=== PATIENT | female | born 2000 | race Caucasian/White ===

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

== ENCOUNTER 2018-11-26 01:24 | Emergency (ER) | payer MEDICAID ==
--- NOTE | 2018-11-26 01:56 | ER Document Report ---
ED General <EMILIANA ENG - Last Filed: 11/26/18 12:13> <LETTY SHETH - Last Filed: 11/26/18 12:36> - General TRAVEL OUTSIDE OF THE [place] IN LAST 30 DAYS: No - HPI Patient complains to provider of: suicidal ideation <INGA ACHARYA - Last Filed: 11/26/18 17:48> - General Chief Complaint: Psych Problem Stated Complaint: PSYCH EVAL Time Seen by Provider: 11/26/18 01:40 Primary Care Provider: Keisha Fuentes [Outside] - 11/26/18 [facility] [Outside] - Follow up as needed - HPI Notes: Normally healthy 18-year-old female presents with increasing depression due to stressors at home including difficulty college and recent break-up 2 years. Has had suicidal ideation. Patient does not have a plan. Denies all physical complaints (INGA ACHARYA) - Related Data Allergies/Adverse Reactions: Penicillins Allergy (Verified 11/26/18 01:25) Past Medical History - Social History Smoking Status: Unknown if Ever Smoked Family History: Reviewed & Not Pertinent Renal/ Medical History: Denies: Hx Peritoneal Dialysis GI Medical History: Reports: Hx Gastroesophageal Reflux Disease Psychiatric Medical History: Reports: Hx Attention Deficit Hyperactivity Disorder, Hx Depression Past Surgical History: Reports: Hx Appendectomy - Immunizations Immunizations up to date: Yes Hx Diphtheria, Pertussis, Tetanus Vaccination: Yes <INGA ACHARYA - Last Filed: 11/26/18 17:48> Review of Systems <INGA ACHARYA - Last Filed: 11/26/18 17:48> - Review of Systems Notes: REVIEW OF SYSTEMS: CONSTITUTIONAL: -fevers, -chills EENT: -eye pain, -difficulty swallowing, -nasal congestion CARDIOVASCULAR: -chest pain, -syncope. RESPIRATORY: -cough, -SOB GASTROINTESTINAL: -abdominal pain, -nausea, -vomiting, -diarrhea GENITOURINARY: -dysuria, -hematuria MUSCULOSKELETAL: -back pain, -neck pain SKIN: -rash or skin lesions. HEMATOLOGIC: -easy bruising or bleeding. LYMPHATIC: -swollen, enlarged glands. NEUROLOGICAL: -altered mental status or loss of consciousness, -headache, - neurologic symptoms PSYCHIATRIC: -anxiety, + depression. ALL OTHER SYSTEMS REVIEWED AND NEGATIVE. (INGA ACHARYA) Physical Exam <KAL ACHARYAKERRI Bonilla - Last Filed: 11/26/18 17:48> - Vital signs Vitals: Pulse BP Pulse Ox 137 H 128/94 H 100 11/26/18 01:40 11/26/18 01:40 11/26/18 01:40 - Notes Notes: PHYSICAL EXAMINATION: GENERAL: Well-appearing, well-nourished and in no acute distress. HEAD: Atraumatic, normocephalic. EYES: Pupils equal round and reactive to light, extraocular movements intact, sclera anicteric, conjunctiva are normal. ENT: nares patent, oropharynx clear without exudates. Moist mucous membranes. NECK: Normal range of motion, supple without lymphadenopathy LUNGS: Breath sounds clear to auscultation bilaterally and equal. No wheezes rales or rhonchi. HEART: Regular rate and rhythm without murmurs ABDOMEN: Soft, nontender, normoactive bowel sounds. No guarding, no rebound. No masses appreciated. EXTREMITIES: Normal range of motion, no pitting or edema. No cyanosis. NEUROLOGICAL: Cranial nerves grossly intact. Normal speech, normal gait. Normal sensory and motor exams. PSYCH: depressed mood SKIN: Warm, Dry, normal turgor, no rashes or lesions noted. (INGA ACHARYA) Course - Laboratory Result Diagrams: 11/26/18 02:09 11/26/18 02:09 <EMILIANA ENG - Last Filed: 11/26/18 12:13> - Laboratory Result Diagrams: 11/26/18 02:09 11/26/18 02:09 <LETTY SHETH - Last Filed: 11/26/18 12:36> - Laboratory Result Diagrams: 11/26/18 02:09 11/26/18 02:09 - EKG Interpretation by Wi EKG shows normal: Sinus rhythm Rate: Normal Rhythm: NSR <MARCKINGA Bonilla - Last Filed: 11/26/18 17:48> - Re-evaluation Re-evalutation: 11/26/18 02:13 Well-appearing 18-year-old female. Presents with increasing depression and suicidal ideation. Patient does not have a formalized plan. Facing a great deal of stress in her life. Extensive lab work-up shows no organic cause of the symptoms. Patient will be seen by our psychology team in the morning. (INGA ACHARYA) - Vital Signs Vital signs: Temp Pulse Resp BP Pulse Ox 98.7 F 73 16 103/61 99 11/26/18 12:52 11/26/18 12:52 11/26/18 06:02 11/26/18 12:52 11/26/18 06:02 - Laboratory Laboratory results interpreted by me: 11/26/18 11/26/18 11/26/18 02:09 02:09 02:09 Hgb 11.8 L MCV 72 L MCH 22.6 L MCHC 31.5 L RDW 15.8 H Potassium 3.3 L Urine Ketones 20 H Urine Blood MODERATE H Ur Leukocyte Esterase SMALL H Salicylates < 1.0 L Acetaminophen < 10 L - EKG Interpretation by Me Additional EKG results interpreted by me: 11/26/18 02:10 Normal sinus rhythm 76 bpm, no ST elevation or depression, no pathologic T wave inversions, normal MD, normal QTC (INGA ACHARYA) Discharge <EMILIANA ENG - Last Filed: 11/26/18 12:13> <LETTY SHETH - Last Filed: 11/26/18 12:36> <INGA ACHARYA - Last Filed: 11/26/18 17:48> - Discharge Clinical Impression: Suicidal ideation, Relational problem Depression Qualifiers: Depression Type: other depression Qualified Code(s): F32.89 - Other specified depressive episodes Condition: Stable Disposition: HOME, SELF-CARE Additional Instructions: You have been evaluated by both medical and behavioral health providers while in the emergency department. You have been cleared from both acute medical and psychiatric services. You identified recent relationship ending as a trigger to increased depression and stress. Situational stresses like this are important for your outpatient provider to know about in order to best support you p rofessionally via medication management and therapy. DEPRESSION: Your evaluation reveals that you have mental depression. While symptoms may be vague, they often include disturbance of sleep, fatigue, loss of appetite, and general loss of interest in life. While depression may be a side effect of drugs, or a reaction to a major change in your life, many cases have no known cause. If depression is acute, and related to a major loss in your life, you can expect it to clear completely with time. If you have been depressed a long time, are prone to repeated bouts of depression or low mood, or have been thinking of suicide, get help. Depression can be treated with anti-depressant medication and counselling. Long-term depression will often take a few weeks to clear, even with appropriate medication. Follow-up care is important. SUICIDAL IDEATION: Suicidal ideation is a common medical term for thoughts about suicide, which may be as detailed as a formulated plan, without the suicidal act itself. Although most people who undergo suicidal ideation do not commit suicide, some go on to make suicide attempts. The range of suicidal ideation varies greatly from fleeting to detailed planning, role playing, and unsuccessful attempts. While thoughts about suicide are common, most people do not carry out serious actions to commit suicide. Based upon your evaluation and discussion with you, we do not believe you are currently at risk to act upon your thoughts of suicide. You have agreed to return to the Emergency Department, at any time, if you feel inclined to act upon your suicidal thoughts. FOLLOW-UP CARE: You will do a walk in today immediately upon discharge from the emergency department with your current medication provider at [facility] ([facility]) and request individual therapy. You have been provided the [facility] Mobile Crisis number for crisis, talk therapy and linkage to other supports/services. Your male friend at bedside was included in plan of care, has agreed to increase supervision, be in control of medications and administration and take you to [facility] today. If you experience worsening or a significant change in your symptoms, notify the physician immediately, utilize mobile crisis or return to the Emergency Department at any time for re-evaluation. Referrals: [facility] [Outside] - Follow up as needed [facility] [Outside] - 11/26/18
[2018-11-26 04:02] LABS: ABSOLUTE BASOPHILS # (AUTO) 0.1 10^3/uL (0.0-0.2); ABSOLUTE LYMPHOCYTES (AUTO) 2.1 10^3/uL (0.5-4.7); ABSOLUTE MONOCYTES (AUTO) 0.7 10^3/uL (0.1-1.4); ABSOLUTE NEUT (AUTO) 3.9 10^3/uL (1.7-8.2); BASOPHILS % (AUTO) 0.9 % (0-2); EOSINOPHILS % (AUTO) 0.3 % (0-6); HEMATOCRIT 37.5 % (36.0-47.0); HEMOGLOBIN 11.8 g/dL (12.0-15.5); LYMPHOCYTES % (AUTO) 31.1 % (13-45); MEAN CORPUSCULAR HEMOGLOBIN 22.6 pg (27.0-33.4); MEAN CORPUSCULAR HGB CONC 31.5 g/dL (32.0-36.0); MEAN CORPUSCULAR VOLUME 72 fl (80-97); MONOCYTES % (AUTO) 10.7 % (3-13); PLATELET COUNT 327 10^3/uL (150-450); RED BLOOD COUNT 5.23 10^6/uL (3.72-5.28); RED CELL DISTRIBUTION WIDTH 15.8 % (11.5-14.0); TOTAL CELLS COUNTED % (AUTO) 100 %; WHITE BLOOD COUNT 6.9 10^3/uL (4.0-10.5)
[2018-11-26 04:08] LABS: APPEARANCE,URINE TURBID; BILIRUBIN,URINE NEGATIVE (NEGATIVE); COLOR,URINE YELLOW; GLUCOSE, URINE NEGATIVE (NEGATIVE); KETONES,URINE 20 mg/dL (NEGATIVE); LEUKOCYTE ESTERASE,URINE SMALL (NEGATIVE); NITRITE,URINE NEGATIVE (NEGATIVE); PROTEIN,URINE NEGATIVE (NEGATIVE); URINE SPECIFIC GRAVITY 1.023; UROBILINOGEN,URINE NEGATIVE mg/dL (<2.0)
[2018-11-26 04:14] LABS: ALBUMIN 4.6 g/dL (3.5-5.0); ALKALINE PHOSPHATASE 58 U/L (38-126); ANION GAP 12 (5-19); ASPARTATE AMINO TRANSFERASE 18 U/L (14-36); BILIRUBIN,DIRECT 0.3 mg/dL (0.0-0.4); BILIRUBIN,TOTAL 0.4 mg/dL (0.2-1.3); BLOOD UREA NITROGEN 11 mg/dL (7-20); CALCIUM 9.5 mg/dL (8.4-10.2); CARBON DIOXIDE 24 mmol/L (22-30); CHLORIDE 103 mmol/L (98-107); GLUCOSE 89 mg/dL (75-110); POTASSIUM 3.3 mmol/L (3.6-5.0); TOTAL PROTEIN 7.6 g/dL (6.3-8.2)
[2018-11-26 04:15] LABS: ACETAMINOPHEN < 10 ug/mL (10-30); ALCOHOL < 10 mg/dL (NONE DETECTED); SALICYLATE < 1.0 mg/dL (2.0-20.0)
[2018-11-26 04:21] LABS: URINE AMPHETAMINES SCREEN NEGATIVE; URINE BARBITURATES SCREEN NEGATIVE; URINE BENZODIAZEPINES SCREEN NEGATIVE; URINE COCAINE SCREEN NEGATIVE; URINE MARIJUANA (THC) SCREEN NEGATIVE; URINE METHADONE SCREEN NEGATIVE; URINE PHENCYCLIDINE SCREEN NEGATIVE
--- NOTE | 2018-11-26 07:37 | EKG REPORT ---
SEVERITY:- BORDERLINE ECG - SINUS RHYTHM BORDERLINE LEFT AXIS DEVIATION NO CHANGE FROM 06/16/16 EKG. : Confirmed by: Sadnor Lagunas MD 26-Nov-2018 07:36:26
[2018-11-26] MEDS ORDERED: POTASSIUM CHLORIDE 10 MEQ CAPSULE.ER PO ONE (10:31)
--- NOTE | 2018-11-26 10:31 | ER Document Report ---
Doctor's Note Notes: 11/26/18 10:30 Rounds: Chart reviewed and patient interviewed. Patient is being evaluated for suicidal thoughts vital signs are all normal except for potassium of 3.3. I am going to give the patient 40 mEq of KCl p.o. Vital signs were all normal. Patient appears to be medically stable for transfer or discharge. Jackie Garg MD
[2018-11-26 12:53] VITALS: BP 103/61
== END 2018-11-26 12:44 | disposition home or self-care (01) ==
LOC: ER 01:24
DX: R45.851 Suicidal ideations (principal); F32.89 Other specified depressive episodes; Z88.0 Allergy status to penicillin; Z63.0 Problems in relationship with spouse or partner
CPT/HCPCS: 36415; 80053; 80307; 81001; 85025; 93005; 93010; 99285